=== PATIENT | female | born 1970 | race Caucasian/White ===

== ENCOUNTER 2019-12-22 12:25 | Emergency (ER) | payer MEDICAID ==
[~2019-12-22] VITALS: Ht 157.5 cm; Wt 68.5 kg
[2019-12-22 12:46] VITALS: BP 131/114
--- NOTE | 2019-12-22 13:01 | NUR ---
49 yo female presents to ER c/o h/a started yesterday only on right side of face radiating to neck. pain /. pt describes as "crushing." pt states no appetite today, was able to eat and keep food down yesterday. pt has nausea. Vomitted after breakfast this morning. 0800 Ibuprofen 2 600mg, w/o any relief. Pt has sensitivity to light. Family at bedside. Waiting for ERMD to evaluate pt. Allergies: [facility] HX: Parkinson's Disease since 2018 medications carbidopa/levodopa 25-100mg QID
--- NOTE | 2019-12-22 13:21 | NUR ---
Dimmed lights for pt comfort d/t photosensitivity
--- NOTE | 2019-12-22 13:30 | NUR ---
Pt appears restless. Pain level still remains 10/10. [place] made aware.
[2019-12-22 14:07] LABS: BASOPHILS % (AUTO) 0.4 % (0.0-2.0); EOSINOPHILS % (AUTO) 0.4 % (0.0-4.0); HEMOGLOBIN 14.7 g/dL (12.0-16.0); LYMPHOCYTES # (AUTO) 1.8 K/uL (2.5-16.5); LYMPHOCYTES % (AUTO) 16.5 % (20.5-51.1); MEAN CORPUSCULAR HEMOGLOBIN 29 pg (27-31); MEAN CORPUSCULAR HGB CONC 34 g/dL (33-37); MEAN CORPUSCULAR VOLUME 85.9 fL (80-94); MONOCYTES # (AUTO) 0.4 K/uL (0.8-1.0); MONOCYTES % (AUTO) 3.7 % (1.7-9.3); NEUTROPHILS # (AUTO) 8.7 K/uL (1.8-7.7); PLATELET COUNT (AUTO) 230 K/uL (140-450); RED BLOOD CELL COUNT(AUTO) 5.01 MIL/uL (4.20-5.40); RED CELL DISTRIBUTION WIDTH 13.4 % (11.6-13.7)
[2019-12-22] MEDS: NACL 0.9% 1,000 ML IV ONE (14:08)
[2019-12-22] MEDS: DEXAMETHASONE 10 MG/ML VIAL IM ONE (14:08)
[2019-12-22] MEDS: diphenhydrAMINE 50 MG/ML VIAL IVP ONE (14:09)
[2019-12-22] MEDS: ONDANSETRON 4 MG/2 ML VIAL IVP ONE (14:09)
[2019-12-22 14:11] LABS: APPEARANCE,URINE CLEAR (CLEAR); BILIRUBIN,URINE NEGATIVE (NEGATIVE); BLOOD, URINE NEGATIVE (NEGATIVE); COLOR,URINE YELLOW (YELLOW); LEUKOCYTE ESTERASE ,URINE 1+ (NEGATIVE); NITRITE, URINE NEGATIVE (NEGATIVE); UGLUCOSE NEGATIVE (NEGATIVE)
[2019-12-22] MEDS: KETOROLAC 15 MG/ML VIAL IVP ONE ×2 (14:11→15:04)
[2019-12-22 14:29] LABS: ALBUMIN 4.1 g/dL (3.4-5.0); ANION GAP 11.8 (8-16); CARBON DIOXIDE 27.5 mmol/L (21-32); CREATININE 0.5 mg/dL (0.6-1.3); POTASSIUM 4.3 mmol/L (3.5-5.1); TOTAL BILIRUBIN 0.6 mg/dL (0.0-1.0)
[2019-12-22] MEDS: LORazepam 2 MG/ML VIAL IVP ONE (14:40)
--- NOTE | 2019-12-22 15:04 | NUR ---
Pt ambulated to restroom
[2019-12-22 15:21] LABS: RBC,URINE 0-5 /HPF (0-5)
--- NOTE | 2019-12-22 15:30 | NUR ---
Pt states pain level 9/10. [place] made aware.
[2019-12-22] MEDS: HYDROcodone/APAP 5/325 MG 1 TAB TAB PO ONE (16:06)
[2019-12-22 16:20] VITALS: BP 135/74
--- NOTE | 2019-12-22 16:21 | NUR ---
Patient discharged with v/s stable. Written and verbal after care instructions given and explained. Pt encouraged to drink plenty of water. Patient alert, oriented and verbalized understanding of instructions. Ambulatory with steady gait. All questions addressed prior to discharge. ID band removed. Patient advised to follow up with PMD. Rx of Nitrofurantoin 100mg, Ibuprofen 600mg and Tylenol with Codeiene, was given. Patient educated on indication of medication including possible reaction and side effects. Opportunity to ask questions provided and answered.
== END 2019-12-22 16:21 | disposition home or self-care (01) ==
LOC: MED 12:25
DX: R51 Headache (principal); F41.1 Generalized anxiety disorder; R11.2 Nausea with vomiting, unspecified; G20 Parkinson's disease
CPT/HCPCS: 36415; 70450; 80053; 81001; 81025; 85025; 87086; 96361; 96372; 96374; 96375; 96376; 99285; J1100; J1200; J1885; J2060; J2405; J7030

== ENCOUNTER 2024-08-26 23:13 | Observation (INO) | payer MEDICAID ==
[~2024-08-26] VITALS: Ht 157.5 cm; Wt 58.5 kg
[2024-08-26 23:40] VITALS: PULSE 110; RESP 30; TEMP 98.5; O2SAT 97
[2024-08-27 00:59] LABS: BASOPHILS # (AUTO) 0.1 K/uL (0.00-0.22); BASOPHILS % (AUTO) 0.8 % (0.0-2.0); EOSINOPHILS % (AUTO) 0.3 % (0.0-4.0); HEMATOCRIT 40.8 % (36-48); HEMOGLOBIN 13.5 g/dL (12.0-16.0); LYMPHOCYTES # (AUTO) 2.8 K/uL (2.5-16.5); LYMPHOCYTES % (AUTO) 18.7 % (20.5-51.1); MEAN CORPUSCULAR HEMOGLOBIN 30 pg (27-31); MEAN CORPUSCULAR HGB CONC 33 g/dL (33-37); MEAN CORPUSCULAR VOLUME 89.8 fL (80-94); MONOCYTES # (AUTO) 0.9 K/uL (0.8-1.0); MONOCYTES % (AUTO) 5.9 % (1.7-9.3); NEUTROPHILS % (AUTO) 74.3 % (42.2-75.2); PLATELET COUNT (AUTO) 271 K/uL (140-450); RED BLOOD CELL COUNT(AUTO) 4.55 MIL/uL (4.20-5.40); RED CELL DISTRIBUTION WIDTH 12.9 % (11.6-13.7); WHITE BLOOD COUNT (AUTO) 14.8 K/uL (4.8-10.8)
[2024-08-27 01:24] LABS: ALBUMIN 3.6 g/dL (3.4-5.0); ANION GAP 13.8 (8-16); CARBON DIOXIDE 27.5 mmol/L (21-32); CREATININE 0.8 mg/dL (0.6-1.3); POTASSIUM 3.3 mmol/L (3.5-5.1); TOTAL BILIRUBIN 0.7 mg/dL (0.0-1.0); TOTAL PROTEIN, SERUM 7.1 g/dL (6.4-8.2)
[2024-08-27] MEDS: diphenhydrAMINE 50 MG CAP PO ONE (01:26)
[2024-08-27 01:49] LABS: APPEARANCE,URINE CLEAR (CLEAR); BILIRUBIN,URINE NEGATIVE (NEGATIVE); BLOOD, URINE NEGATIVE (NEGATIVE); COLOR,URINE YELLOW (YELLOW); LEUKOCYTE ESTERASE ,URINE TRACE (NEGATIVE); NITRITE, URINE NEGATIVE (NEGATIVE); PROTEIN,URINE TRACE (NEGATIVE); UGLUCOSE NEGATIVE (NEGATIVE); UROBILINOGEN,URINE 0.2 EU/dL (0.2 - 1)
[2024-08-27 01:52] LABS: BACTERIA,URINE 10-30 (MOD) /HPF (None Seen); MUCUS,URINE 1+ /LPF (None Seen); RBC,URINE 0-5 /HPF (0-5); SQUAMOUS EPITHELIAL CELL,UR 0-3 (FEW) /LPF (0-3 (FEW))
[2024-08-27 01:57] LABS: AMPHETAMINE, URINE NEGATIVE ng/ml (NEG <=1000); BARBITURATE, URINE NEGATIVE ng/ml (NEG <=200); BENZODIAZEPINE, URINE NEGATIVE ng/mL (NEG <=200); CANNABINOID, URINE NEGATIVE ng/mL (NEG <=50); COCAINE, URINE NEGATIVE ng/mL (NEG <=300); PHENCYCLIDINE SCREEN,URINE NEGATIVE ng/mL (NEG <=25)
[2024-08-27 01:58] LABS: OPIATE, URINE POSITIVE ng/mL (NEG <=2000)
[2024-08-27] MEDS: ACETAMINOPHEN EXTRA STRENGTH 500 MG TAB PO ONE (02:05)
[2024-08-27] MEDS ORDERED: CARB1TAB37 PO (06:10)
[2024-08-27] MEDS ORDERED: ENTA200T3 PO (06:17)
[2024-08-27] MEDS ORDERED: ACETAMINOPHEN 325 MG TAB PO PRN (11:25)
[2024-08-27] MEDS ORDERED: LORazepam 2 MG/ML VIAL IVP PRN (11:25)
[2024-08-27] MEDS ORDERED: ONDANSETRON 4 MG/2 ML VIAL IVP PRN (11:25)
[2024-08-27] MEDS ORDERED: HYDROcodone/APAP 5/325 MG 1 TAB TAB PO PRN (11:25)
[2024-08-27] MEDS ORDERED: cefTRIAXone 1,000 MG VIAL ONE (12:31)
[2024-08-27] MEDS: NACL 0.9% 1,000 ML IV SCH (12:40)
[2024-08-27 13:30] VITALS: PULSE 92; RESP 16; O2SAT 98
[2024-08-27 13:35] VITALS: PULSE 92
[2024-08-27] MEDS: POTASSIUM CHLORIDE 10 MEQ TABER PO SCH (13:58)
[2024-08-27] MEDS: ENTACAPONE PO SCH (15:57)
[2024-08-27] MEDS: CARB PO SCH (15:57)
[2024-08-27] MEDS: LEVO PO SCH (15:57)
[2024-08-27 16:00] VITALS: BP 140/87; PULSE 89; PULSE 97; RESP 15; TEMP 99; O2SAT 91
[2024-08-27] MEDS ORDERED: COMMUNICATION ORDER MC SCH (16:00)
[2024-08-27 20:00] VITALS: BP 122/77; PULSE 88; PULSE 89; RESP 15; TEMP 98.9; O2SAT 100; O2SAT 99
[2024-08-27] MEDS ORDERED: ENTACAPONE 200 MG TAB PO SCH (21:00)
[2024-08-28] VITALS: BP 120/73; PULSE 81; PULSE 87; RESP 18; TEMP 97; O2SAT 99
[2024-08-28 04:00] VITALS: BP 107/70; PULSE 80; PULSE 82; RESP 17; TEMP 97.1; O2SAT 98
[2024-08-28 05:18] LABS: BASOPHILS % (AUTO) 0.5 % (0.0-2.0); EOSINOPHILS # (AUTO) 0.2 K/uL (0-0.4); EOSINOPHILS % (AUTO) 2.9 % (0.0-4.0); HEMATOCRIT 40.2 % (36-48); HEMOGLOBIN 13.2 g/dL (12.0-16.0); LYMPHOCYTES # (AUTO) 2.5 K/uL (2.5-16.5); MEAN CORPUSCULAR HEMOGLOBIN 30 pg (27-31); MEAN CORPUSCULAR HGB CONC 33 g/dL (33-37); MEAN CORPUSCULAR VOLUME 89.4 fL (80-94); MONOCYTES # (AUTO) 0.5 K/uL (0.8-1.0); MONOCYTES % (AUTO) 7.1 % (1.7-9.3); NEUTROPHILS # (AUTO) 4.4 K/uL (1.8-7.7); NEUTROPHILS % (AUTO) 57.5 % (42.2-75.2); PLATELET COUNT (AUTO) 245 K/uL (140-450); RED BLOOD CELL COUNT(AUTO) 4.49 MIL/uL (4.20-5.40); RED CELL DISTRIBUTION WIDTH 13.7 % (11.6-13.7); WHITE BLOOD COUNT (AUTO) 7.7 K/uL (4.8-10.8)
[2024-08-28 06:37] LABS: CALCIUM 8.4 mg/dL (8.5-10.1); CARBON DIOXIDE 26.9 mmol/L (21-32); CREATININE 0.6 mg/dL (0.6-1.3); MAGNESIUM 1.9 mg/dL (1.8-2.4); POTASSIUM 3.9 mmol/L (3.5-5.1); TOTAL BILIRUBIN 0.4 mg/dL (0.0-1.0); TOTAL PROTEIN, SERUM 6.3 g/dL (6.4-8.2)
[2024-08-28 08:00] VITALS: BP 120/78; PULSE 88; PULSE 90; RESP 18; TEMP 98.5; O2SAT 100
[2024-08-28] MEDS: ENOXAPARIN 40 MG/0.4 ML SYR SUBQ SCH (09:37)
[2024-08-28 12:00] VITALS: PULSE 89
[2024-08-28 12:41] VITALS: RESP 20; TEMP 98.5
== END 2024-08-28 14:05 | disposition home or self-care (01) ==
LOC: MED 23:13 → MIC 08-27 11:24 → MTU 08-27 20:55
PROVIDERS: ADMIT Hospitalist; ATTEND Hospitalist
DX: N39.0 Urinary tract infection, site not specified (principal); Z20.822 Contact with and (suspected) exposure to COVID-19; D72.829 Elevated white blood cell count, unspecified; E86.0 Dehydration; G24.01 Drug induced subacute dyskinesia; G25.5 Other chorea; G20.A1 Parkinson's disease without dyskinesia, without mention of fluctuations; F02.80 Dementia in other diseases classified elsewhere, unspecified severity, without behavioral disturbance, psychotic disturbance, mood disturbance, and anxiety; R50.9 Fever, unspecified; Z79.899 Other long term (current) drug therapy
CPT/HCPCS: 36415; 70450; 80053; 80305; 81001; 83690; 83735; 85025; 87081; 87086; 87426; 96365; 96366; 96372; 99284; G0378; J0696; J1650; J7060; Q0163